=== PATIENT | male | born 1945 | race Hispanic/Latino ===

== ENCOUNTER 2022-12-12 07:34 | Day surgery (SDC) | payer MEDICARE ==
[2022-12-06 12:15] LABS: BASOPHILS % (AUTO) 0.6 % (0.0-5.0); EOSINOPHILS % (AUTO) 2.3 % (0.0-8.0); HEMATOCRIT 43.3 % (42-54); LYMPHOCYTES % (AUTO) 23.7 % (21.0-51.0); MEAN CORPUSCULAR HGB CONC 33.3 g/dL (32.0-36.0); MEAN CORPUSCULAR VOLUME 93.1 fL (79-99); MONOCYTES % (AUTO) 9.7 % (3.0-13.0); NEUTROPHILS % (AUTO) 63.4 % (40.0-77.0); PLATELET COUNT (AUTO) 182 K/uL (130-400); RED BLOOD CELL COUNT(AUTO) 4.65 MIL/uL (4.50-6.20); RED CELL DISTRIBUTION WIDTH 12.3 % (11.0-15.5); WHITE BLOOD COUNT (AUTO) 6.6 K/uL (4.8-10.8)
[2022-12-06 12:29] LABS: POTASSIUM 4.3 mmol/L (3.5-5.1)
[2022-12-06 12:33] LABS: INR 1.03 (0.85-1.15); PROTHROMBIN TIME 11.9 SEC (9.6-11.6)
[2022-12-06 12:53] LABS: APPEARANCE,URINE CLEAR (CLEAR); BILIRUBIN,URINE NEGATIVE (NEGATIVE); COLOR,URINE LIGHT-YELLOW (YELLOW); GLUCOSE, URINE (UA) NEGATIVE (NEGATIVE); KETONES,URINE NEGATIVE (NEGATIVE); LEUKOCYTE ESTERASE ,URINE NEGATIVE Leu/uL (NEGATIVE); NITRATE,URINE NEGATIVE (NEGATIVE); OCCULT BLOOD,URINE NEGATIVE (NEGATIVE); PH,URINE 5.5 (5.0-8.0); PROTEIN,URINE NEGATIVE (NEGATIVE); UROBILINOGEN,URINE 0.2 mg/dL (0.2-1.0)
[2022-12-06 13:03] VITALS: BP 154/82; PULSE 58; RESP 16
[~2022-12-12] VITALS: Ht 177.8 cm; Wt 93.1 kg
[2022-12-12] VITALS (20 sets, daily range): BP systolic 127–152; BP diastolic 62–85; PULSE 58–86; RESP 10–20
[~2022-12-12 07:34] MED LIST: AMLO-257 PO; ASPI-1197 PO; TAMS-1 PO
[2022-12-12] MEDS ORDERED: CEFTRIAXONE 1G VIAL ONE (08:08)
[2022-12-12] MEDS ORDERED: LACTATED RINGERS 1000ML 1,000 ML IV ONE (08:08)
[2022-12-12] MEDS ORDERED: GENTAMICIN 80 MG/NS 100 ML PB 100 ML IV ONE (08:08)
[2022-12-12] MEDS ORDERED: LEVO-70 PO (08:49)
[2022-12-12] MEDS ORDERED: LIDOCAINE PF 100MG/5ML (2%) SYRINGE 5ML ONE (12:07)
[2022-12-12] MEDS ORDERED: PROPOFOL 10 MG/ML 20ML VIAL IV ONE (12:07)
[2022-12-12] MEDS ORDERED: ONDANSETRON 4MG INJ ONE (12:07)
[2022-12-12] MEDS ORDERED: MIDAZOLAM HCL 1 MG/ML 2ML VIAL ONE (12:07)
[2022-12-12] MEDS ORDERED: DEXAMETHASONE SOD PHOSPHATE 10MG/ML 1ML VIAL ONE (12:07)
[2022-12-12] MEDS ORDERED: MEPERIDINE-PF 25 MG/ML SYG ONE (12:08)
[2022-12-12] MEDS ORDERED: EPHEDRINE SULFATE 50 MG/ML AMPULE ONE (12:56)
[2022-12-12] MEDS ORDERED: FENTANYL CITRATE PF 50 MCG/1 ML 5ML AMP IV ONE (12:59)
[2022-12-12] MEDS ORDERED: GLYCOPYRROLATE 1 MG/5 ML SYRINGE ONE (13:03)
[2022-12-12] MEDS ORDERED: BACITRACIN 1 EACH PACKET TP ONE (15:56)
== END 2022-12-12 15:55 | disposition home or self-care (01) ==
LOC: DAH 07:34
PROVIDERS: ATTEND Urology
DX: N40.1 Benign prostatic hyperplasia with lower urinary tract symptoms (principal); Z20.822 Contact with and (suspected) exposure to COVID-19; R33.8 Other retention of urine; R39.12 Poor urinary stream; R35.0 Frequency of micturition; R35.1 Nocturia; I10 Essential (primary) hypertension; Z88.0 Allergy status to penicillin; Z79.899 Other long term (current) drug therapy; Z79.82 Long term (current) use of aspirin; Z98.890 Other specified postprocedural states; Z79.01 Long term (current) use of anticoagulants
CPT/HCPCS: 80048; 85025; 85610; 85730; 87088; 87426; 81003; 36415; 71045; 93005; 52648; A6260; J7030; C1758; A4354; J7120; J3010; J3490 ×2; J1100; J2001; J0696; J2250; J2704; J2405; J2175; J1580; A4358; A4930; A4215; A4223; A4222; A4221; A4600